=== PATIENT | male | born 1960 | race Two or more races ===

== ENCOUNTER 2021-11-21 02:10 | Inpatient (IN) | payer MEDICARE ==
[~2021-11-21] VITALS: Ht 157.5 cm; Wt 74.1 kg
[2021-11-21] MEDS ORDERED: MORPHINE SULFATE INJ 2 MG/ml SYRG IV PRN ×2 (12:00)
[2021-11-21] MEDS ORDERED: ASPirin 81 mg TAB PO ONE (12:00)
[2021-11-21] MEDS ORDERED: ONDANSETRON HCL 4 MG/2 ML VIAL IV PRN (12:00)
[2021-11-21] MEDS ORDERED: NITROGLYCERIN 0.4 MG SL TAB SL PRN (12:00)
[2021-11-21] MEDS ORDERED: TEMAZEPAM 15 MG CAP PO PRN (12:00)
[2021-11-21] MEDS ORDERED: ACETAMINOPHEN 325 MG TAB PO PRN (12:00)
[2021-11-21] MEDS ORDERED: ALUM & MAG HYDROX-SIMETH LIQ(MAALOX) 30 ML PO PRN (12:00)
[2021-11-21] MEDS ORDERED: DOCUSATE SOD 100 MG CAP PO PRN (12:00)
[2021-11-21] MEDS ORDERED: HYDROcodone-ACET 5/325MG TAB PO PRN (12:00)
[2021-11-21] MEDS ORDERED: DEXTROSE (50%) 50ML SYRG IV PRN (12:15)
[2021-11-21 12:23] VITALS: BP 115/71
[2021-11-21] MEDS ORDERED: METO25TA93 PO (13:08)
[2021-11-21] MEDS ORDERED: AMIO200T33 PO (13:10)
[2021-11-21] MEDS ORDERED: LISI20TA28 PO (13:10)
[2021-11-21 13:53] LABS: Urine Bacteria NONE SEEN /hpf (None Seen); Urine Blood Negative /uL (Negative); Urine WBC <1 /hpf (0 - 3)
[2021-11-21] MEDS ORDERED: ENOXAPARIN SOD 80 MG/0.8ML SYRINGE SC ONE (14:30)
[2021-11-21] MEDS: SODIUM CHLOR 0.9% PF (SALINE LOCK) 10ML VIAL/SYR IV SCH ×2 (15:00→22:15)
[2021-11-21 15:43] LABS: Basophils # (auto) 0.1 10 ^3/uL (0-0.2); Basophils % (auto) 0.7 % (0.0-2.0); Eosinophils # (auto) 0.4 10 ^3/uL (0-0.8); Eosinophils % (auto) 5.2 % (0.0-7.0); Hematocrit 40.9 % (41.0-53.0); Hemoglobin 13.9 g/dL (13.5-17.5); Lymphocytes # (auto) 1.8 10 ^3/uL (0.4-5.4); Lymphocytes % (auto) 25.1 % (10.0-50.0); Mean Corpuscular Hemoglobin 27.9 pg (28.0-32.0); Mean Corpuscular Hgb Conc. 33.9 g/dL (32.0-36.0); Mean Corpuscular Volume 82.4 fL (80.0-100.0); Monocytes # (auto) 0.7 10 ^3/uL (0-1.3); Monocytes % (auto) 9.3 % (0.0-12.0); Neutrophils # (auto) 4.3 10 ^3/uL (1.6-8.6); Neutrophils % (auto) 59.7 % (37.0-80.0); Nucleated Red Blood Cells % 0.1 %; Red Blood Cells 4.96 10^6/uL (4.5-5.90); Red Cell Distribution Width 16.3 % (11.8-14.3); White Blood Cell 7.2 10^3/uL (4.4-10.8)
[2021-11-21 15:59] LABS: Albumin 3.2 g/dL (3.4-5.0); Calcium 8.8 mg/dL (8.5-10.1); Potassium 4.7 mmol/L (3.5-5.1)
[2021-11-21 16:01] LABS: INR 1.05 (0.9-1.15); Partial Thromboplastin Time 26.5 sec (23.6-33.0)
[2021-11-21 16:04] LABS: BUN/Creatinine Ratio 16.7; Bilirubin, Total 0.3 mg/dL (0.2-1.0); Total Protein 7.8 g/dL (6.4-8.2)
[2021-11-21] MEDS: ACCU-CHEK COMFORT CURVE STRIP VI SCH ×2 (17:51→22:21)
[2021-11-21] MEDS: InsuLIN REG 1unit/0.01ml Soln (100units/ml) SC SCH ×2 (17:52→22:27)
[2021-11-21 22:00] VITALS: BP 100/65
[2021-11-21] MEDS: ISOSORBIDE MONONITRATE ER 60 MG TAB PO SCH (22:28)
[2021-11-21] MEDS: ATORVASTATIN 20 MG TAB PO SCH (22:30)
[2021-11-22 05:00] VITALS: BP 94/68
[2021-11-22] MEDS: ACCU-CHEK COMFORT CURVE STRIP VI SCH ×4 (06:00→22:03)
[2021-11-22] MEDS: SODIUM CHLOR 0.9% PF (SALINE LOCK) 10ML VIAL/SYR IV SCH ×3 (06:00→22:03)
[2021-11-22] MEDS: InsuLIN REG 1unit/0.01ml Soln (100units/ml) SC SCH ×4 (06:02→22:04)
[2021-11-22] MEDS ORDERED: SODIUM CHLORIDE 0.9% 1,000 ML IV ONE (08:45)
[2021-11-22] MEDS: ENOXAPARIN SOD 80 MG/0.8ML SYRINGE SC SCH ×2 (09:25→22:07)
[2021-11-22] MEDS: ASPirin 81 mg TAB PO SCH (09:25)
[2021-11-22] MEDS: ISOSORBIDE MONONITRATE ER 60 MG TAB PO SCH (09:28)
[2021-11-22 09:40] VITALS: BP 95/68
[2021-11-22] MEDS ORDERED: ERGOCALCIFEROL 50,000 UNIT(1.25MG) CAP PO SCH (12:00)
[2021-11-22 13:31] VITALS: BP 114/70
[2021-11-22 16:40] VITALS: BP 116/80
[2021-11-22 22:00] VITALS: BP 122/71
[2021-11-22] MEDS: ATORVASTATIN 20 MG TAB PO SCH (22:07)
[2021-11-23 05:00] VITALS: BP 127/81
[2021-11-23 05:50] LABS: BUN/Creatinine Ratio 16.9; Calcium 8.7 mg/dL (8.5-10.1); Potassium 3.7 mmol/L (3.5-5.1)
[2021-11-23] MEDS: ACCU-CHEK COMFORT CURVE STRIP VI SCH ×2 (06:08→12:24)
[2021-11-23] MEDS: SODIUM CHLOR 0.9% PF (SALINE LOCK) 10ML VIAL/SYR IV SCH (06:09)
[2021-11-23] MEDS: InsuLIN REG 1unit/0.01ml Soln (100units/ml) SC SCH ×2 (06:11→12:24)
[2021-11-23 09:00] VITALS: BP 126/74
[2021-11-23] MEDS: ASPirin 81 mg TAB PO SCH (09:18)
[2021-11-23] MEDS: ISOSORBIDE MONONITRATE ER 60 MG TAB PO SCH (09:19)
[2021-11-23] MEDS: ENOXAPARIN SOD 80 MG/0.8ML SYRINGE SC SCH (09:19)
[2021-11-23] MEDS ORDERED: INSU1INJ5 SC (10:47)
[2021-11-23] MEDS ORDERED: ASPI-325 PO (10:47)
[2021-11-23] MEDS ORDERED: LISI20TA28 PO (10:47)
[2021-11-23] MEDS ORDERED: ISO60SRT PO (10:47)
[2021-11-23] MEDS ORDERED: EMPA1TAB PO (10:47)
[2021-11-23] MEDS ORDERED: RIVA20TA PO (10:47)
[2021-11-23] MEDS ORDERED: METO25TA93 PO (10:47)
[2021-11-23] MEDS ORDERED: ATOR20TA50 PO (10:47)
[2021-11-23] MEDS ORDERED: ERGO1CAP23 PO (10:47)
[2021-11-23] MEDS ORDERED: AMIO200T33 PO (10:47)
[2021-11-23] MEDS ORDERED: INSU100I61 SC (10:47)
[2021-11-23] MEDS ORDERED: METF-372 PO (10:47)
[2021-11-23] MEDS ORDERED: BLOO1KIT60 XX (10:47)
[2021-11-23 13:00] VITALS: BP 146/93
[2021-11-23 14:01] VITALS: BP 126/74
== END 2021-11-23 14:30 | disposition home or self-care (01) | DRG 303 ==
LOC: TELE-CENTR 11:15
PROVIDERS: ADMIT Internal Medicine; ATTEND Internal Medicine
DX: I25.110 Atherosclerotic heart disease of native coronary artery with unstable angina pectoris (principal); D68.69 Other thrombophilia; I11.9 Hypertensive heart disease without heart failure; I25.10 Atherosclerotic heart disease of native coronary artery without angina pectoris; L40.9 Psoriasis, unspecified; E78.5 Hyperlipidemia, unspecified; E11.9 Type 2 diabetes mellitus without complications; Z20.822 Contact with and (suspected) exposure to COVID-19; I48.91 Unspecified atrial fibrillation; E66.9 Obesity, unspecified; E55.9 Vitamin D deficiency, unspecified; Z79.899 Other long term (current) drug therapy; Z68.29 Body mass index [BMI] 29.0-29.9, adult; Z95.1 Presence of aortocoronary bypass graft; Z87.891 Personal history of nicotine dependence
CPT/HCPCS: 36415; 71045; 80048; 80053; 80061; 81001; 82306; 82962; 83036; 83880; 84443; 84484; 85025; 85610; 85730; 93306; G0378; J1815

== ENCOUNTER 2021-12-16 11:14 | Inpatient (IN) | payer MEDICARE ==
[~2021-12-16] VITALS: Ht 162.6 cm; Wt 77.8 kg
[~2021-12-16 11:14] MED LIST: AMIO200T33 PO; ASPI-325 PO; ATOR20TA50 PO; BLOO1KIT60 XX; EMPA1TAB PO; ERGO1CAP23 PO; INSU100I61 SC; INSU1INJ5 SC; ISO60SRT PO; LISI20TA28 PO; METF-372 PO; METO25TA93 PO; RIVA20TA PO
[2021-12-16] MEDS ORDERED: ONDANSETRON HCL 4 MG/2 ML VIAL IV ONE (12:00)
[2021-12-16] MEDS ORDERED: SODIUM CHLORIDE 0.9% 500 ML IV ONE (12:00)
[2021-12-16] MEDS ORDERED: ASPirin 81 mg TAB PO ONE (12:00)
[2021-12-16 12:06] LABS: Basophils # (auto) 0.1 10 ^3/uL (0-0.2); Hematocrit 43.3 % (41.0-53.0); Monocytes # (auto) 0.8 10 ^3/uL (0-1.3); Nucleated Red Blood Cells % 0.1 %
[2021-12-16 12:08] LABS: Basophils % (auto) 1.1 % (0.0-2.0); Eosinophils # (auto) 1.1 10 ^3/uL (0-0.8); Eosinophils % (auto) 12.5 % (0.0-7.0); Lymphocytes % (auto) 23.3 % (10.0-50.0); Mean Corpuscular Hgb Conc. 32.4 g/dL (32.0-36.0); Mean Corpuscular Volume 83.2 fL (80.0-100.0); Monocytes % (auto) 9.6 % (0.0-12.0); Neutrophils # (auto) 4.5 10 ^3/uL (1.6-8.6); Neutrophils % (auto) 53.5 % (37.0-80.0); Red Cell Distribution Width 17.5 % (11.8-14.3); White Blood Cell 8.4 10^3/uL (4.4-10.8)
[2021-12-16 12:28] LABS: INR 1.35 (0.9-1.15); Partial Thromboplastin Time 36.7 sec (23.6-33.0)
[2021-12-16 12:35] LABS: Albumin 3.7 g/dL (3.4-5.0); Calcium 8.9 mg/dL (8.5-10.1); Magnesium 2.5 mg/dL (1.6-2.6); Potassium 4.7 mmol/L (3.5-5.1)
[2021-12-16 12:38] LABS: BUN/Creatinine Ratio 15.3; Bilirubin, Total 0.4 mg/dL (0.2-1.0); Total Protein 7.9 g/dL (6.4-8.2)
[2021-12-16] MEDS ORDERED: ONDANSETRON HCL 4 MG/2 ML VIAL IV PRN (15:15)
[2021-12-16] MEDS ORDERED: NITROGLYCERIN 0.4 MG SL TAB SL PRN (15:15)
[2021-12-16] MEDS ORDERED: MORPHINE SULFATE INJ 2 MG/ml SYRG IV PRN (15:15)
[2021-12-16] MEDS ORDERED: DEXTROSE (50%) 50ML SYRG IV PRN (15:45)
[2021-12-16] MEDS: ACCU-CHEK COMFORT CURVE STRIP VI SCH ×2 (17:16→22:21)
[2021-12-16] MEDS: InsuLIN REG 1unit/0.01ml Soln (100units/ml) SC SCH ×2 (17:17→22:21)
[2021-12-16 21:17] VITALS: BP 134/70
[2021-12-16 21:56] VITALS: BP 158/88
[2021-12-16] MEDS: ATORVASTATIN 20 MG TAB PO SCH (22:12)
[2021-12-16] MEDS: RANOLAZINE ER 500 MG TAB PO SCH (22:12)
[2021-12-16] MEDS: AMIODARONE HCL 200 MG TAB PO SCH (22:12)
[2021-12-16] MEDS: ACETAMINOPHEN 325 MG TAB PO PRN (23:33)
[2021-12-17 04:38] VITALS: BP 141/81
[2021-12-17 06:01] LABS: Hematocrit 40.3 % (41.0-53.0); Hemoglobin 13.8 g/dL (13.5-17.5); Mean Corpuscular Hemoglobin 28.2 pg (28.0-32.0); Mean Corpuscular Hgb Conc. 34.1 g/dL (32.0-36.0); Mean Corpuscular Volume 82.7 fL (80.0-100.0); Red Blood Cells 4.88 10^6/uL (4.5-5.90); Red Cell Distribution Width 16.7 % (11.8-14.3); White Blood Cell 8.1 10^3/uL (4.4-10.8)
[2021-12-17 06:09] LABS: Potassium 4.3 mmol/L (3.5-5.1)
[2021-12-17 06:13] LABS: Band Neutrophils % (manual) 0; Basophils % (manual) 0 (0.0-2.0); Blast Cells 0; Metamyelocytes % 0; Myelocytes % 0; Promyelocytes % 0; Reactive Lymphocytes 0
[2021-12-17] MEDS: ACCU-CHEK COMFORT CURVE STRIP VI SCH ×4 (06:16→22:07)
[2021-12-17 06:17] LABS: Albumin 3.4 g/dL (3.4-5.0); Bilirubin, Total 0.4 mg/dL (0.2-1.0); Calcium 8.7 mg/dL (8.5-10.1); Total Protein 7.4 g/dL (6.4-8.2)
[2021-12-17] MEDS: InsuLIN REG 1unit/0.01ml Soln (100units/ml) SC SCH ×4 (06:17→22:27)
[2021-12-17 08:10] VITALS: BP 142/87
[2021-12-17] MEDS: ENOXAPARIN SOD 40 MG/0.4 ML SYRINGE SC SCH (08:37)
[2021-12-17] MEDS: ASPirin 81 mg TAB PO SCH (08:37)
[2021-12-17] MEDS: AMIODARONE HCL 200 MG TAB PO SCH ×2 (08:37→22:07)
[2021-12-17] MEDS: RANOLAZINE ER 500 MG TAB PO SCH ×2 (08:54→22:07)
[2021-12-17 12:26] VITALS: BP 139/86
[2021-12-17 14:53] LABS: Eosinophils % (manual) 11 (0-7); Lymphocytes % (manual) 26 (10.0-50.0); Monocytes % (manual) 13 (0-12)
[2021-12-17 16:38] VITALS: BP 115/80
[2021-12-17 22:00] VITALS: BP 140/85
[2021-12-17] MEDS: ATORVASTATIN 20 MG TAB PO SCH (22:07)
[2021-12-18] VITALS (7 sets, daily range): BP systolic 103–159; BP diastolic 65–96
[2021-12-18] MEDS: InsuLIN REG 1unit/0.01ml Soln (100units/ml) SC SCH ×4 (06:14→21:41)
[2021-12-18] MEDS: ACCU-CHEK COMFORT CURVE STRIP VI SCH ×4 (06:15→21:42)
[2021-12-18] MEDS: ASPirin 81 mg TAB PO SCH (09:27)
[2021-12-18] MEDS: AMIODARONE HCL 200 MG TAB PO SCH ×2 (09:28→21:13)
[2021-12-18] MEDS: RANOLAZINE ER 500 MG TAB PO SCH ×2 (09:28→21:13)
[2021-12-18] MEDS: ENOXAPARIN SOD 40 MG/0.4 ML SYRINGE SC SCH (09:29)
[2021-12-18] MEDS: ATORVASTATIN 20 MG TAB PO SCH (21:13)
[2021-12-19 05:00] VITALS: BP 150/92
[2021-12-19] MEDS: ACCU-CHEK COMFORT CURVE STRIP VI SCH ×4 (06:37→22:20)
[2021-12-19] MEDS: InsuLIN REG 1unit/0.01ml Soln (100units/ml) SC SCH ×4 (06:40→22:37)
[2021-12-19 08:30] VITALS: BP 114/72
[2021-12-19 09:03] VITALS: BP 114/72
[2021-12-19] MEDS: AMIODARONE HCL 200 MG TAB PO SCH ×2 (10:00→22:20)
[2021-12-19] MEDS: ASPirin 81 mg TAB PO SCH (10:00)
[2021-12-19] MEDS: ENOXAPARIN SOD 40 MG/0.4 ML SYRINGE SC SCH (10:00)
[2021-12-19] MEDS: RANOLAZINE ER 500 MG TAB PO SCH ×2 (10:00→22:20)
[2021-12-19 12:22] VITALS: BP 128/80
[2021-12-19] MEDS: SODIUM CHLORIDE 0.9% 1,000 ML IV SCH (15:32)
[2021-12-19 16:33] VITALS: BP 128/68
[2021-12-19 21:53] VITALS: BP 128/80
[2021-12-19] MEDS: ATORVASTATIN 20 MG TAB PO SCH (22:20)
[2021-12-19] MEDS: ACETAMINOPHEN 325 MG TAB PO PRN (22:21)
[2021-12-20 04:53] VITALS: BP 101/48
[2021-12-20] MEDS: ACCU-CHEK COMFORT CURVE STRIP VI SCH ×4 (05:27→22:00)
[2021-12-20] MEDS: InsuLIN REG 1unit/0.01ml Soln (100units/ml) SC SCH ×4 (05:28→22:03)
[2021-12-20 06:52] LABS: Basophils # (auto) 0.1 10 ^3/uL (0-0.2); Eosinophils # (auto) 0.9 10 ^3/uL (0-0.8); Eosinophils % (auto) 12.3 % (0.0-7.0); Hematocrit 41.3 % (41.0-53.0); Hemoglobin 13.8 g/dL (13.5-17.5); Lymphocytes % (auto) 26.4 % (10.0-50.0); Mean Corpuscular Hemoglobin 27.9 pg (28.0-32.0); Mean Corpuscular Hgb Conc. 33.5 g/dL (32.0-36.0); Mean Corpuscular Volume 83.2 fL (80.0-100.0); Monocytes # (auto) 0.9 10 ^3/uL (0-1.3); Monocytes % (auto) 11.5 % (0.0-12.0); Neutrophils # (auto) 3.6 10 ^3/uL (1.6-8.6); Neutrophils % (auto) 48.8 % (37.0-80.0); Nucleated Red Blood Cells % 0.1 %; Red Blood Cells 4.96 10^6/uL (4.5-5.90); Red Cell Distribution Width 17.3 % (11.8-14.3); White Blood Cell 7.4 10^3/uL (4.4-10.8)
[2021-12-20 06:55] LABS: Urine Bacteria FEW /hpf (None Seen); Urine Blood Negative /uL (Negative); Urine WBC 1 /hpf (0 - 3)
[2021-12-20 06:58] LABS: Calcium 8.4 mg/dL (8.5-10.1); Potassium 4.3 mmol/L (3.5-5.1)
[2021-12-20 07:00] LABS: BUN/Creatinine Ratio 22.4
[2021-12-20 07:03] LABS: INR 1.1 (0.9-1.15); Partial Thromboplastin Time 29.2 sec (23.6-33.0)
[2021-12-20 08:00] VITALS: BP 129/85
[2021-12-20] MEDS: SODIUM CHLORIDE 0.9% 1,000 ML IV SCH ×3 (09:00→19:00)
[2021-12-20] MEDS: ENOXAPARIN SOD 40 MG/0.4 ML SYRINGE SC SCH (10:00)
[2021-12-20] MEDS: ASPirin 81 mg TAB PO SCH (10:17)
[2021-12-20] MEDS: AMIODARONE HCL 200 MG TAB PO SCH ×2 (10:18→21:59)
[2021-12-20] MEDS: RANOLAZINE ER 500 MG TAB PO SCH ×2 (10:18→22:00)
[2021-12-20 13:00] VITALS: BP 166/89
[2021-12-20] MEDS: CLINDAMYCIN 300MG IV 50 ML IV SCH ×2 (13:50→21:59)
[2021-12-20] MEDS ORDERED: CLINDAMYCIN 600 MG/4 ML VL IM SCH (14:00)
[2021-12-20 16:44] VITALS: BP 174/88
[2021-12-20 18:19] VITALS: BP 149/95
[2021-12-20 22:00] VITALS: BP 165/91
[2021-12-20] MEDS: ATORVASTATIN 20 MG TAB PO SCH (22:00)
[2021-12-20] MEDS ORDERED: cloNIDine HCL 0.1 MG TAB PO PRN (23:45)
[2021-12-21 05:03] LABS: Basophils # (auto) 0.1 10 ^3/uL (0-0.2); Basophils % (auto) 1.4 % (0.0-2.0); Eosinophils # (auto) 0.8 10 ^3/uL (0-0.8); Eosinophils % (auto) 12.1 % (0.0-7.0); Hematocrit 42.1 % (41.0-53.0); Hemoglobin 14.1 g/dL (13.5-17.5); Lymphocytes # (auto) 1.6 10 ^3/uL (0.4-5.4); Mean Corpuscular Hemoglobin 27.5 pg (28.0-32.0); Mean Corpuscular Hgb Conc. 33.5 g/dL (32.0-36.0); Mean Corpuscular Volume 82.1 fL (80.0-100.0); Monocytes # (auto) 0.8 10 ^3/uL (0-1.3); Monocytes % (auto) 12.9 % (0.0-12.0); Neutrophils # (auto) 3.2 10 ^3/uL (1.6-8.6); Neutrophils % (auto) 49.6 % (37.0-80.0); Nucleated Red Blood Cells % 0.1 %; Red Blood Cells 5.13 10^6/uL (4.5-5.90); Red Cell Distribution Width 17.9 % (11.8-14.3); White Blood Cell 6.5 10^3/uL (4.4-10.8)
[2021-12-21 05:11] VITALS: BP 133/91
[2021-12-21 05:18] LABS: INR 1.09 (0.9-1.15); Partial Thromboplastin Time 27.9 sec (23.6-33.0)
[2021-12-21 05:21] LABS: BUN/Creatinine Ratio 15.7; Calcium 8.8 mg/dL (8.5-10.1); Potassium 4.1 mmol/L (3.5-5.1)
[2021-12-21] MEDS: CLINDAMYCIN 300MG IV 50 ML IV SCH ×3 (06:17→21:57)
[2021-12-21] MEDS: ACCU-CHEK COMFORT CURVE STRIP VI SCH ×4 (06:18→21:57)
[2021-12-21] MEDS: InsuLIN REG 1unit/0.01ml Soln (100units/ml) SC SCH ×4 (06:20→22:03)
[2021-12-21] MEDS: SODIUM CHLORIDE 0.9% 1,000 ML IV SCH ×2 (06:30→14:51)
[2021-12-21] MEDS: ASPirin 81 mg TAB PO SCH (08:34)
[2021-12-21] MEDS: RANOLAZINE ER 500 MG TAB PO SCH ×2 (08:35→21:57)
[2021-12-21] MEDS: AMIODARONE HCL 200 MG TAB PO SCH ×2 (08:35→21:56)
[2021-12-21 09:00] VITALS: BP 116/75
[2021-12-21] MEDS: ENOXAPARIN SOD 40 MG/0.4 ML SYRINGE SC SCH (10:00)
[2021-12-21] MEDS ORDERED: ANGIOMAX 250 MG VIAL IV ONE (12:42)
[2021-12-21] MEDS ORDERED: fentaNYL CITRATE 100 MCG/2 ML VL ONE (12:43)
[2021-12-21] MEDS ORDERED: MIDAZOLAM HCL 2MG/2ML 2ml VIAL (1mg/ml) ONE (12:44)
[2021-12-21] MEDS ORDERED: SODIUM CHL 0.9% 50 ML ONE (12:44)
[2021-12-21] MEDS ORDERED: LIDOCAINE 2%HCL (LOCAL ANESTH.) INJ 10ml MDV ONE (12:47)
[2021-12-21] MEDS ORDERED: IODIXANOL 320MG/ML 100ML BTL IV ONE (12:55)
[2021-12-21 16:53] VITALS: BP 169/86
[2021-12-21] MEDS: ATORVASTATIN 20 MG TAB PO SCH (21:57)
[2021-12-21 22:00] VITALS: BP 110/74
[2021-12-22] MEDS: SODIUM CHLORIDE 0.9% 1,000 ML IV SCH ×2 (01:10→11:23)
[2021-12-22 05:00] VITALS: BP 112/74
[2021-12-22] MEDS: CLINDAMYCIN 300MG IV 50 ML IV SCH ×2 (05:45→15:21)
[2021-12-22] MEDS: ACCU-CHEK COMFORT CURVE STRIP VI SCH ×2 (05:47→11:36)
[2021-12-22] MEDS: InsuLIN REG 1unit/0.01ml Soln (100units/ml) SC SCH ×3 (06:48→16:39)
[2021-12-22 08:00] VITALS: BP 149/70
[2021-12-22 09:07] VITALS: BP 114/70
[2021-12-22] MEDS: ASPirin 81 mg TAB PO SCH (10:21)
[2021-12-22] MEDS: AMIODARONE HCL 200 MG TAB PO SCH (10:22)
[2021-12-22] MEDS: RANOLAZINE ER 500 MG TAB PO SCH (10:22)
[2021-12-22] MEDS ORDERED: RIVA20TA PO (12:18)
[2021-12-22 13:13] VITALS: BP 158/103
[2021-12-22 14:49] VITALS: BP 132/84
[2021-12-22] MEDS ORDERED: RIVAROXABAN 20 MG TAB PO SCH (18:00)
== END 2021-12-22 17:52 | disposition home or self-care (01) | DRG 253 ==
LOC: ER 11:14 → TELE 15:20 → TELE-WESTW 19:59
PROVIDERS: ADMIT Registered Nurse; ATTEND Family Medicine
PROC: 047Q3ZZ Dilation of Left Anterior Tibial Artery, Percutaneous Approach (ICD-10-PCS; principal; 2021-12-21)
PROC: 047N3ZZ Dilation of Left Popliteal Artery, Percutaneous Approach (ICD-10-PCS; 2021-12-21)
PROC: B41G1ZZ Fluoroscopy of Left Lower Extremity Arteries using Low Osmolar Contrast (ICD-10-PCS; 2021-12-21)
DX: E11.51 Type 2 diabetes mellitus with diabetic peripheral angiopathy without gangrene (principal); D68.69 Other thrombophilia; I24.9 Acute ischemic heart disease, unspecified; I25.10 Atherosclerotic heart disease of native coronary artery without angina pectoris; I11.9 Hypertensive heart disease without heart failure; I95.9 Hypotension, unspecified; E11.65 Type 2 diabetes mellitus with hyperglycemia; I48.0 Paroxysmal atrial fibrillation; L40.9 Psoriasis, unspecified; B95.61 Methicillin susceptible Staphylococcus aureus infection as the cause of diseases classified elsewhere; L08.9 Local infection of the skin and subcutaneous tissue, unspecified; Z20.822 Contact with and (suspected) exposure to COVID-19; E11.40 Type 2 diabetes mellitus with diabetic neuropathy, unspecified; E66.9 Obesity, unspecified; E78.5 Hyperlipidemia, unspecified; Z68.29 Body mass index [BMI] 29.0-29.9, adult; Z79.01 Long term (current) use of anticoagulants; Z79.84 Long term (current) use of oral hypoglycemic drugs; Z83.3 Family history of diabetes mellitus; Z95.1 Presence of aortocoronary bypass graft
CPT/HCPCS: 36415; 37224; 37228; 71045; 75710; 80048; 80053; 81001; 82962; 83735; 83880; 84484; 85007; 85025; 85027; 85379; 85610; 85730; 87077; 87186; 87205; 93005; 93886; 93925; 96361; 96374; 99152; 99153; 99291; C1725; G0378; J1815; J2001; J2250; J2405; J3490; Q9967

== ENCOUNTER → 2022-01-06 | Outpatient (CLI) | payer MEDICARE | END | disposition home or self-care (01) | LOC: LAB 14:19 | PROVIDERS: ATTEND Internal Medicine | DX: I25.700 Atherosclerosis of coronary artery bypass graft(s), unspecified, with unstable angina pectoris (principal); E78.5 Hyperlipidemia, unspecified; E11.9 Type 2 diabetes mellitus without complications; I10 Essential (primary) hypertension | CPT/HCPCS: 82270 ==